=== PATIENT | male | born 1955 | race Caucasian/White ===

== ENCOUNTER 2024-11-20 15:17 | Outpatient (CLI) | payer BC, SELFPAY ==
--- NOTE | 2024-11-20 15:14 | DI.RAD_ITS ---
Exam(s) XR PELVIS AP EXAM: XR PELVIS AP CLINICAL HISTORY: THR Planning. TECHNIQUE: 2D digital imaging was performed.One images were obtained. COMPARISON: RF XR HIP MIN 2V LT from 08/26/2024 RF XR LS SPINE 2-3 VIEWS from 08/26/2024 FINDINGS: BONES: No acute fracture is present. No bony destructive lesion is seen. JOINTS: In the left hip, there is loss of the joint space, subchondral sclerosis and osteophytes. In the right hip, there is marked narrowing of the joint space. Osteophytes are also present on the ac etabulum and the femoral head. SOFT TISSUE: Atherosclerotic calcification is present. IMPRESSION: Marked osteoarthritis of the hips, left greater than right. DATA REPOSITORY: RADIATION DOSE DELIVERED:
== END 2024-11-20 15:18 | disposition home or self-care (01) ==
LOC: DIORS 15:18
PROVIDERS: PCP Family Medicine; Referring Provider Family Medicine; Visit Provider Physician Assistant
DX: M16.12 Unilateral primary osteoarthritis, left hip (principal)
CPT/HCPCS: 72170

== ENCOUNTER 2025-02-12 03:50 | Outpatient (CLI) | payer BC, SELFPAY ==
[2025-02-12 15:00] LABS: HCT 39.4 % (40.0-50.0); HGB 13.3 g/dL (13.5-17.5); MCH 30.3 pg (27.0-33.0); MCHC 33.8 % (32.0-36.0); MCV 90 fL (80-95); MPV 11.5 fL (8.0-11.0); Platelet Count 234 10^3/uL (130-400); RBC 4.39 10^6/uL (4.36-5.78); RDW 13.0 % (11.8-14.1); RDW-SD 42.6 fL; WBC 6.76 10^3/uL (4.4-10.8)
[2025-02-12 17:12] LABS: Anion Gap 12.6 mmol/L (3-11); BUN 16 mg/dL (7-18); CO2 25.4 mmol/L (21.0-32.0); Calcium 9.1 mg/dL (8.5-10.1); Chloride 105 mmol/L (98-107); Estimated GFR 80.97 (mL/min/1.73m2); Glucose 97 mg/dL (74-106); Potassium 3.7 mmol/L (3.5-5.1); Sodium 143 mmol/L (136-145)
== END 2025-02-12 03:51 | disposition home or self-care (01) ==
LOC: LBO 03:50
PROVIDERS: PCP Family Medicine; Visit Provider Student in an Organized Health Care Education/Training Program
DX: M16.12 Unilateral primary osteoarthritis, left hip (principal); Z01.818 Encounter for other preprocedural examination
CPT/HCPCS: 36415; 80048; 85027

== ENCOUNTER 2025-03-30 15:57 | Outpatient (REF) | payer BC, SELFPAY ==
[2025-03-30 13:06] LABS: HCT 40.1 % (40.0-50.0); HGB 13.4 g/dL (13.5-17.5); MCH 30.2 pg (27.0-33.0); MCHC 33.4 % (32.0-36.0); MCV 90 fL (80-95); MPV 11.4 fL (8.0-11.0); Platelet Count 260 10^3/uL (130-400); RBC 4.44 10^6/uL (4.36-5.78); RDW 13.1 % (11.8-14.1); RDW-SD 43.7 fL; WBC 5.89 10^3/uL (4.4-10.8)
[2025-03-30 13:12] LABS: Anion Gap 13.4 mmol/L (3-11); BUN 10 mg/dL (7-18); CO2 21.6 mmol/L (21.0-32.0); Calcium 9.3 mg/dL (8.5-10.1); Chloride 106 mmol/L (98-107); Estimated GFR 95.21 (mL/min/1.73m2); Glucose 102 mg/dL (74-106); Potassium 3.8 mmol/L (3.5-5.1); Sodium 141 mmol/L (136-145)
== END 2025-03-30 15:58 | disposition home or self-care (01) ==
LOC: NCHCN 15:57
PROVIDERS: PCP Family Medicine; Visit Provider Student in an Organized Health Care Education/Training Program
DX: M16.12 Unilateral primary osteoarthritis, left hip (principal); Z01.818 Encounter for other preprocedural examination
CPT/HCPCS: 80048; 85027

== ENCOUNTER 2025-04-08 07:09 | Observation (INO) | payer BC, SELFPAY ==
[2025-04-08] VITALS (35 sets, daily range): BP systolic 85–147; BP diastolic 51–90; PULSE 48–69; RESP 8–21; TEMP 36–36.9; O2SAT 92–100; BMI 25.7
--- NOTE | 2025-04-08 | DI.RAD_ITS ---
Exam(s) XR HIP LT AP LAT ONLY EXAM: XR HIP LT AP LAT ONLY CLINICAL HISTORY: s/p L TIFFANI. TECHNIQUE: 2D digital imaging was performed. Three images were obtained. AP and cross-table lateral views were obtained. COMPARISON: CR XR PELVIS AP from 11/20/2024 XA XR HIP LT IN OR from 04/08/2025 FINDINGS: BONES: The patient is now status post left total hip arthroplasty. No fracture or dislocation. JOINTS: The orthopedic hardware is in good position. No evidence of hardware loosening. SOFT TISSUE: Postsurgical changes are seen in the soft tissues. Atherosclerotic calcification is present. IMPRESSION: Status post left total hip arthroplasty. DATA REPOSITORY: RADIATION DOSE DELIVERED:
[2025-04-08] MEDS: Acetaminophen 500 MG TAB 1000 MG PO (06:29)
[2025-04-08] MEDS: Lactated Ringers 1,000 ML 80 ML IV (06:40)
--- NOTE | 2025-04-08 06:45 | DI.RAD_ITS ---
Exam(s) XR HIP LT IN OR EXAM: XR HIP LT IN OR CLINICAL HISTORY: Osteoarthritis of left hip. TECHNIQUE: 2D digital imaging was performed. COMPARISON: No exams were available for comparison FINDINGS: Intraoperative fluoroscopy was provided during left hip arthroplasty. See procedure report for details. IMPRESSION: Radiation exposure index/cumulative dose:love Mckenzie=2.5052mGy DATA REPOSITORY: RADIATION DOSE DELIVERED:
--- NOTE | 2025-04-08 06:46 | ANES.PREOP_ITS ---
General Info Date of Service Date Performed: 04/08/25 Height: 5 ft 5 in Weight: 70.3 kg Body Mass Index (BMI): 25.7 Surgical Procedure: Operation Date: 04/08/25 07:50 Proposed Procedure Side Surgeon p Hip Total Hip Anterior, ACTIS Left Black Garcia MD Meds Allergies and Home Medications Allergies Allergy/AdvReac Type Severity Reaction Status Date / Time bella Allergy Unknown Unknown Verified 04/08/25 06:33 grass pollen Allergy Unknown Unknown Verified 04/08/25 06:33 Home Medication ?Medication ?Instructions ?Recorded Unknown [No Known Home Meds] 11/20/24 Current Visit Medications: Current Medications Generic Name Dose Route Start Last Admin Trade Name Freq PRN Reason Stop Dose Admin Acetaminophen 1,000 mg 04/08/25 06:00 04/08/25 06:29 Acetaminophen 500 Mg Tab PO 04/08/25 23:59 1,000 mg PREOP IFEANYI Administration Celecoxib 400 mg 04/08/25 06:00 04/08/25 06:29 Celecoxib 200 Mg Cap PO 04/08/25 23:59 400 mg PREOP IFEANYI Administration Ringer's Solution 1,000 mls @ 80 mls/hr 04/08/25 06:00 04/08/25 06:40 IV 04/08/25 23:59 80 mls/hr INFUSION IFEANYI Administration Cefazolin Sodium/Dextrose 2 gm in 50 mls @ 100 mls/hr 04/08/25 06:00 Ancef Duplex IVPB 04/08/25 23:59 PREOP IFEANYI Tranexamic Acid/Sodium Chloride 1,000 mg in 100 mls @ 600 mls/hr 04/08/25 06:00 IVPB 04/08/25 23:59 PREOP IFEANYI IV Miscellaneous Supplies 1 each 04/08/25 06:00 Iv Access IV 04/08/25 23:59 DIRECTED IFEANYI Sodium Chloride 0 ml 04/08/25 06:00 Normal Saline Flush 10 Ml Syr IV 04/08/25 23:59 PRN PRN Sodium Chloride 0 ml 04/08/25 06:00 Normal Saline 10 Ml Vial IJ 04/08/25 23:59 DIRECTED PRN Sterile Water 0 ml 04/08/25 06:00 Water,Injection,Sterile 10 Ml Vial IJ 04/08/25 23:59 DIRECTED PRN PFSH Active Problems Active Problems: Problem Status Onset Code Osteoarthritis of left hip Acute M16.12 Right rib fracture Acute S22.31XA Left lumbar radiculopathy Acute M54.16 Hyperlipidemia Acute E78.5 Tobacco Smoking/Tobacco Use Status: Never Passive smoking exposure: No Alcohol Alcohol Intake: current Alcohol intake frequency: a few times a month Substance Use Substance use: Never Substance use type: does not use Vital Signs and Lab Results Vital Signs Most Recent Vital Signs in EMR: Most Recent Vital Signs Temp Pulse Resp BP Pulse Ox 36.5 C 61 16 147/90 H 99 04/08/25 06:30 04/08/25 06:30 04/08/25 06:30 04/08/25 06:30 04/08/25 06:30 Lab Results Complete Blood Count: WBC, (4.4-10.8) 5.89 10^3/uL 03/30/25, 11:15 RBC, (4.36-5.78) 4.44 10^6/uL 03/30/25, 11:15 Hgb, (13.5-17.5) 13.4 g/dL L 03/30/25, 11:15 Hct, (40.0-50.0) 40.1 % 03/30/25, 11:15 Plt Count, (130-400) 260 10^3/uL 03/30/25, 11:15 Complete Metabolic Panel: Sodium, (136-145) 141 mmol/L 03/30/25, 11:15 Potassium, (3.5-5.1) 3.8 mmol/L 03/30/25, 11:15 Chloride, (98-107) 106 mmol/L 03/30/25, 11:15 Carbon Dioxide, (21.0-32.0) 21.6 mmol/L 03/30/25, 11 :15 BUN, (7-18) 10 mg/dL 03/30/25, 11:15 Creatinine, (0.70-1.30) 0.8 mg/dL 03/30/25, 11:15 Est GFR (CKD-EPI 2020), (mL/min/1.73m2) 95.21 03/30/25, 11:15 Calcium, (8.5-10.1) 9.3 mg/dL 03/30/25, 11:15 Glucose, (74-106) 102 mg/dL 03/30/25, 11:15 Anesthesia Assessment and Plan Anesthesia History Personal History: No History of Anesthesia Complications Family History: No Family History of Anesthesia Complications Exercise Tolerance Exercise Tolerance: Metabolic Equivalents>4 Pertinent Negatives Pertinent Negatives: No Symptoms of GERD, No Major Cardiovascular Symptoms or Complaints, No Major Pulmonary Symptoms or Complaints and No History of CVA/TIA Cardiac & Pulmonary Exam Cardiac Exam: Normal S1/S2 Heart Sounds Pulmonary Exam: Clear Bilateral Breath Sounds Implantable Cardiac Device Does patient have a Pacemaker or an ICD?: No Airway Exam Known Difficult Airway: No Mallampati Class: 2 Mouth Opening: Normal (> 3cm) Thyromental Distance: Greater than 3 cm Neck Range of Motion: Full ROM Neck Circumference: Normal Teeth Condition: Generalized Poor Dentition ASA Classification ASA Score: ASA 2 Emergency Case?: No NPO Status NPO Status: NPO Clears >2 hours, Solids >8 hours Anesthesia Plan Resuscitation Status: Full Code Anesthesia Technique: Spinal Anesthesia Airway Planned: Natural Airway Monitors Used: Standard Monitors
--- NOTE | 2025-04-08 07:11 | PDOC.DSDIS_ITS ---
Date of service: 04/08/25 Discharge Plan Disposition Patient Disposition: Home Condition: Good Discharge Details Reason For Visit: L THR Attending Provider: Black Garcia Primary Care Provider: Reg Champion Home Meds and New Rx's Prescriptions: New acetaminophen 500 mg tablet 1,000 mg PO TID Qty: 90 3RF celecoxib 200 mg capsule 200 mg PO BID Qty: 60 0RF aspirin 81 mg tablet,delayed release (DR/EC) 81 mg PO BID Qty: 60 0RF dexamethasone 4 mg tablet 4 mg PO DAILY Qty: 2 0RF docusate sodium 100 mg capsule 100 mg PO BID PRNQty: 28 0RF pantoprazole 40 mg tablet,delayed release (DR/EC) 40 mg PO DAILY Qty: 14 0RF oxycodone 5 mg tablet 5 mg PO Q4H MDD 6 tabs PRN (Reason: pain) Qty: 12 0RF Discharge Instructions Additional Instructions: Total Hip Discharge Instructions Activity: The most important activity is to walk. You should try to take short walks a few times a day. You have no restrictions on movement or positioning, but do not try to force what you do. You will find some stiffness and weakness with hip flexion (lifting your knee). Do not try to strengthen this too early, continue to practice walking and stairs and this will come. - Outpatient physical therapy can be helpful to help return you to a normal gait and improve your flexibility and strength. This can start around 2 weeks. For some patients, it?s not necessary. Usually this is determined at the time of discharge or at the first post-operative visit. - You should wear the EMIL hose on both legs for 2 weeks. Dressing: Keep the surgical dressing in place for at least one week. After the first week it may be removed and replace with light gauze and tape or nothing. It may get wet after 3 days but avoid soaking the dressing. If it gets wet, just lightly pat dry. It is important to always keep some gauze between skin folds, especially when you are sitting. Spend some time with the wound exposed when you are lying flat as the incision does wrinkle onto itself. Medications: - You should take Tylenol and an anti-inflammatory Celebrex as your primary pain control medications. If the Celebrex is too expensive or not covered, please call the office for another alternative (Advil/Ibuprofen or Naproxen/Aleve). - You have been prescribed a stronger pain medication Oxycodone for breakthrough pain, take as needed as prescribed. - You have also been prescribed a stomach acid reduction agent Pantoprozole to help reduce stomach acid and reflux. - You have also been prescribed Decadron to help with post-operative nausea and pain. You will take this for two days starting tomorrow. - You will be taking Aspirin 81mg twice a day for DVT prevention unless instructed otherwise. - If you have constipation you should take Colace or Miralax (both [id number]). It takes most people 3-4 days to have a bowel movement. Follow-up: 2 weeks If you have any acute concerns or questions, please do not hesitate to contact the office at [phone]. You may contact Dr. Garcia with any questions after hours through the hospital at [phone] or on his cell phone at [phone]. Stand Alone Forms: Anesthesia Discharge Inst., Johnny Arroyo ([facility]) Referrals: Black Garcia MD [ [facility] STAFF PHYSICIAN, Orthopaedic Surgical] - 04/23/25 1:45 pm Equipment/Supplies: Walker Activity:: Activity as Tolerated Shower/Bathe:: 72 hours Diet:: As Tolerated Discharge Orders Discharge Orders: Discharge Order (Routine); Ordered 04/08/25 Ordered By: Vasiliy Trotter DS: Diagnosis Discharge Diagnosis (1) Osteoarthritis of left hip: Status: Acute
--- NOTE | 2025-04-08 07:41 | W.PM.OP ---
Operative Note Operative Note PRE-OP DIAGNOSIS: Left Hip Osteoarthritis POST-OP DIAGNOSIS: same PROCEDURE: Left Anterior Total Hip Arthroplasty with Intraoperative Navigation SURGEON: Black Garcia RESERVATIONS SALES SUPERVISOR: Vasiliy Trotter ANESTHESIA TYPE: Spinal Refer to Anesthesia Record ESTIMATED BLOOD LOSS: 100 PATHOLOGY: none sent TOURNIQUET TIME: 0 COMPLICATIONS: None Patient was transported to: PACU Patient's condition: stable Implants: 1. Depuy [place] Acetabular Component, 54mm 2. Depuy Acetabular Liner, [id number] 3. Depuy Actis High Offset Collared Femoral Stem, Size 4 4. Depuy Altrx Ceramic Femoral Head, Size 36+1.5mm Indications: I have seen Hodan in clinic for symptoms of hip arthritis, confirmed with radiographic findings. He has exhausted nonoperative methods and was having significant limitations in daily function and desired better function and less pain. I discussed the technical details of a hip replacement. I explained the risks of the procedure to include, but not limited to, bleeding, infection, pain, stiffness, fracture, damage to nerves and vessels, damage to muscles and tendons, loosening, instability, leg length inequality, need for repeat procedure, blood clot and cardiopulmonary demise. Despite these risks, Hodan elected to proceed. Findings: There was significant signs of arthritis throughout the hip with large osteophytes throughout. Procedure Description: Hodan was greeted in the preoperative holding area where the correct side was identified and marked. The consent was reviewed with the patient and signed. The history and physical was updated. All questions were answered. He was taken back to the operating room. A spinal anesthestic was then administered. The feet were wrapped with cast padding and Coban and then placed into the boot liners and then into the boots. Care was taken to protect the skin and make sure the heels were fully down and the boots were stable. The patient was then positioned onto the HANA table. Both legs were held in a neutral position. SCDs were applied. The patient was then slid down onto a peroneal post. Prophylactic antibiotics in the form of Cefazolin were administered. 1g of Tranxemic Acid was given intravenously within 30 minutes of incision. The left leg was then prepped with Chloraprep and draped in a standard fashion. A second prep with Chloraprep was performed prior to placement of a shower-curtain type drape with Iodine impregnated skin protection. A timeout to confirm correct identity, side and site, procedure, allergies, anesthesia, and medical concerns was performed. An obliquely oriented incision was made starting lateral to the ASIS and running distal over the Tensor Fascia Chantale (TFL) muscle belly toward the fibular head, approximately 10cm. The skin and soft tissue was dissected sharply, through Beata?s fascia, and to the fascia of the TFL. With the fascia and superior border of the IT band identified, the fascia was incised with a new knife just above any perforators from the IT band. The TFL muscle belly was bluntly dissected away from the fascia and moved laterally. The fat between TFL and rectus was identified to ensure the dissection was not within the TFL. Blunt dissection created space between abductors and the capsule and retractor was placed over the lateral femoral neck. The fibers of the rectus femoris tendon were identified and these were freed from the anterior capsule. A second cobra retractor was placed around the medial femoral neck. The TFL was further retracted laterally to show the deep fascia. Careful dissection through this layer identified three main crossing vessels of the lateral femoral circumflex. These were cauterized in multiple locations and then cut without any noticeable bleeding. The TFL was further released bluntly from the deep fascia to expose anterior hip capsule and fat The soft tissue orthopaedic retractor was then placed beneath the TFL and against sartorius and medial soft tissues to protect and retract the soft tissues. A T-capsulotomy was then performed starting at the superior lateral acetabulum and moving distally to the intertrochanteric ridge. These capsular flaps were tagged with a No. 1 Vicryl and elevated from within. The capsular flaps were released to the shoulder of the lateral neck and to the lesser trochanter to give excellent visualization of the proximal femur. A neck osteotomy was performed using an oscillating saw based on preoperative templates. This cut started in the shoulder and of the lateral neck and exited medially. The saw was at all times directed medially to avoid injury to the greater trochanter. Gross traction was applied to the leg and the osteotomy opened. The femoral head was removed with a corkscrew, making sure to protect the TFL on its exit. Traction was released after head removal. This was measured on the back table to determine the starting reamer size. Portions of the rectus obscuring visualization were minimally elevated off the superior acetabulum. An anterior retractor was placed over the anterior wall between capsule and labrum and attached to the Gripper retraction system. The femur was rotated to 90 degrees and medial capsule was fully released until the lesser trochanter was palpable and visible; the femur was returned to 30 degrees. A posterior retractor was placed similarly between capsule and labrum. This provided excellent visualization. The contents of the cotyloid fossa were removed with electrocautery and the labrum was removed with a knife. There was a notable floor osteophyte. There was significant chondromalacia of the superior acetabulum. Acetabular reaming began with a 49mm reamer. This first reaming was directed anterior to posterior and medial to get down to the true floor. This was inspected and reamed until the true floor was reached. The anterior retractor was then released and entry and exit was provided by traction on the capsular flaps. I then reamed sequentially up to a 54mm reamer where good fit was obtained. The larger reamers were oriented based on anatomical reference of the anterior and lateral davila to ensure proper abduction and anteversion. Positioning and size was confirmed with the fluoroscopy. A 54mm Depuy [place] acetabular component was selected. The acetabulum was reamed around the periphery with the selected acetabular size to prevent a rim fit. The deep tissues were irrigated. The acetabular component was then impacted in a position of about 40-45 degrees of abduction and 15-20 degrees of anteversion, using the patient?s anatomy as the ultimate landmark. Fluoroscopy was used to confirm this. There was excellent car wash supervisor of the acetabular component and the inserting handle was removed. The acetabular liner, Depuy [id number] polyethylene liner, was inserted and lined up with the tines of the acetabular component. There was no soft tissue interposition. The liner was then impacted into position and confirmed to be well-seated. A portion of the manuel-articular cocktail was then injected around the acetabulum into the capsule and periosteum. This cocktail consisted of 123mg of Ropivacaine, 0.25mg of Epinephrine, 0.04mg of Clonidine, and 15mg of Ketorolac, diluted to 50cc. The leg was rotated to 120 degrees. Any remaining medial capsule was released until the lesser trochanter was easily palpable. A retractor was placed medially. The lateral capsule was further released into the shoulder to allow access to the greater trochanter. A Bennett retractor was placed over the greater trochanter which allowed the trochanter to flip in front of the capsule for excellent exposure. The leg was brought down into maximal extension and 20 degrees of adduction while ensuring there was no impingement on the acetabulum. Any remnant capsule within the trochanter was released. Piriformis and obturator externis were identified and protected. There was excellent access to the proximal femur. The lateral neck remnant was removed with a rongeur. A blunt canal probe was used to identify the canal and trajectory for later broaching. A box osteotome initiated the broach course. A small curved rasp and a curved curette were used to work laterally. Broaching then began with a starter Actis broach. This was inserted manually around the trochanter and into the canal before mallet blows. The broach was seated to a few millimeters below the cut level based on the neck cut and the preoperative template. Sequential broaching was continued with the [employer] pneumatic broaching device until a tight fit was obtained with good rotational control of the femur. A trial standard neck was inserted along with a +5 trial head. The leg was brought out of extension and adduction and then reduced with traction and internal rotation. The leg was stable anteriorly in a position of 30 degrees of extension and 90 degrees of external rotation. Fluoroscopy was used to ensure there was no fracture and the stem was seated well. Leg lengths were checked with an AP pelvis and pelvic reference points. [employer] navigation system was used to confirm appropriate positioning and leg length and offset. This is slightly overcorrected the leg length but undercorrected offset. However, this to be improved by going to a high offset neck with a +1.5 mm head. Once content with the desired offset and leg lengths, the leg was brought back into extension, external rotation and adduction. The periosteum and surrounding tissue was injected with remaining portion of the manuel-articular cocktail. The proximal femur was irrigated as well as the deep tissues. The Depuy Actis High Offset collared stem, size 4, was then manually inserted into the proximal femur making sure to control rotation. It was then malleted into position with light blows, giving breaks to allow bone expansion and decrease risk of fracture. The selected Depuy Altrx Ceramic Head, size 36+1.5mm, was then placed onto the clean and dry trunnion and secured with impaction onto the tapered fit. The leg was brought back out of extension and adduction and reduced with traction and internal rotation. Stability was confirmed with no shuck at 90 degrees of external rotation and 30 degrees of extension. No impingement through range of motion arc. Final x-ray images were obtained with fluoroscopy to confirm adequate positioning and no intraoperative fracture. The deep tissues were thoroughly irrigated with Surgiphor, betadine solution. This was allowed to sit in the wound for 3 minutes before being thoroughly irrigated out with normal saline. The capsule was then reapproximated with the previously placed sutures as well as #1 Vicryl. The TFL fascia was finally closed with a No. 2 Stratafix, barbed suture. Deep tissues were then reapproximated with 0 Vicryl and a running 2-0 Vicryl. The skin was closed with a running 4-0 Monocryl in a subcuticular fashion. This was reinforced with skin glue. A Mepilex silver dressing was applied. At the end of the case, all counts were correct. Hodan was transferred to the hospital bed without difficulty and suffering no apparent complication. He has a good prognosis. Physical therapy will start today and without restrictions, weight-bearing as tolerated. Aspirin 81mg BID will be used for DVT prophylaxis. Date of Procedure: 04/08/25
[2025-04-08] MEDS: ceFAZolin 2 GM/50 ML BAG IVPB (07:50)
[2025-04-08] MEDS: TRANEXAMIC ACID/SOD. CHL. 1,000 MG/100 ML BAG 600 MG IVPB (07:54)
[2025-04-08] MEDS: fentaNYL 100 MCG/2 ML VIAL IVP (09:27)
[2025-04-08] MEDS: HYDROmorphone 2 MG/ML SYR IVP (09:34)
[2025-04-08] MEDS: oxyCODONE 5 MG TAB PO (10:07)
[2025-04-08] MEDS: Tranexamic Acid 650 MG TAB 1300 MG PO (10:07)
--- NOTE | 2025-04-08 10:10 | W.ANESPOSTOP ---
Postoperative Evaluation Date, Time and Location Date Performed: 04/08/25 Time Performed: 10:10 Patient Location: Day Surgery Unit Vital Signs Most Recent Imported Vital Signs: Most Recent Vital Signs Temp Pulse Resp BP Pulse Ox 36.3 C L 48 L 8 L 122/62 93 04/08/25 09:48 04/08/25 09:46 04/08/25 09:46 04/08/25 09:45 04/08/25 09:46 Pain Score Most Recent Pain Score: Most Recent Pain Score Pain Level 3 04/08/25 09:48 Assessment Mental Status: Awake (Alert & Oriented to Patient Baseline) Airway and Respiratory Function: Patent airway with normal (patient baseline) respiratory exam Cardiovascular Function: Hemodynamically Stable Hydration Status: Adequately Hydrated Nausea & Vomiting: No Nausea or Vomiting Pain: Pain is tolerable per patient Peripheral Nerve Block: Patient did not receive a nerve block
[2025-04-08] MEDS: Ondansetron 4 MG/2 ML VIAL IVP (11:50)
[2025-04-08] MEDS: Normal Saline Flush 10 ML SYR IV ×2 (11:50→12:49)
--- NOTE | 2025-04-08 11:50 | PT.INIE ---
PT Notes Visit Reasons: L THR Physical Therapy Day Surgery Initial Evaluation Date: 04/08/2025 Referring Doctor: TREMAINE Lyons/Dr. Garcia PT Orders: PT CONSULT: PT evaluation and treat status post Ortho surgery Precautions: WBAT left LE Patient Profile/Admitting Diagnosis: Patient is 70-year-old male presenting status post elective left TIFFANI by Dr. Garcia on 04/08/2025. Postop complicated by nausea and vomiting. PMHX: Osteoarthritis of left hip (Acute) Right rib fracture (Acute) Left lumbar radiculopathy (Acute) Hyperlipidemia (Acute) Social History/Home Situation: Patient resides 1 level home with 3 steps to enter with no rail. Patient independent ambulation, ADLs, patient has shower stall. Equipment Owned/DME: No devices Subjective: Patient initially reported he wants to start to walk. Objective: [] General Observation: Thin male semireclined on stretcher with ice to left hip Mental Status: Alert and oriented to person situation. Patient agreeable to participate cooperative and able to follow instructions Pain: 7/10 despite pain medication prior to session Vital signs initially 106/59 heart rate 51, after vomiting 97/58 heart rate 50, 3 minutes later 100/54 heart rate 50 ROM: [] BUE: WFL Right Lower Extremity: WFL Left Lower Extremity: Hip Flexion 95 degrees, abduction 10 degrees, knee and ankle within functional limits Strength: [] BUE: 5/5 Right Lower Extremity: 5/5 Left Lower Extremity: Hip flexion: 2/5; hip abduction: 2 -/5; hip extension: 3 -/5; knee extension: 3 -/5; knee flexion: 2+/5 ankle DF: 3/5 ; ankle PF: 3/5 Sensation: Intact Bed Mobility/Transfers: [] Supine to sit min assist for lower extremity Sit to stand CGA with cues for hand placement Stand to sit CGA with cues for hand placement Bed to chair CGA with FWW Gait: Ambulated 10 feet with FWW min assist positive antalgic gait left lower extremity. Patient demonstrating forward trunk flexion with weightbearing on left lower extremity and increased weightbearing through bilateral upper extremities. At 10 feet patient reported he was feeling like he was going to vomit patient assisted to chair. Patient vomited large amount of liquid RN present. Balance: [] Static Sitting: Good Dynamic Sitting: Fair Static Standing: Fair with upper extremity support Dynamic Standing: Poor plus with upper extremity support Special Tests: [] Mobility Limitations Standardized Measure [] [facility] AM-PAC 6 clicks Basic Mobility Inpatient Short Form: [] Raw Score: 15 CMS Score: 57.70% deficit Informed Consent/Education: Patient instructed in purpose of PT consult. Treatment: 20061 packet containing TIFFANI exercise protocol has been given to patient. Education and training on initial set of exercises that can be done at home have been completed with patient. Transfers sit to/from stand from chair x 5 with contact-guard/min assist resulting in episode of emesis Step turn transfers with FWW x 2 with min assist of 1 Sit to supine with min assist of 1 for lower extremities Assessment: Patient initially approached for assessment able to sit at edge of bed stand and perform step turn transfer to chair with FWW patient developed nausea with resulting emesis. Patient allowed to rest x 2.5 hours prior to reattempt at functional assessment. On second attempt patient able to perform sit to stands from chair to walker without reports of nausea then attempted to take 2 steps patient developed nausea again with resulting emesis large amount. Patient assisted back to bed status discussed with Dr. Garcia present in room patient to be admitted for observation overnight with reattempt of PT in the a.m. Patient demonstrates increased pain resulting in episodes of emesis x 3 with mobility and at rest. Patient unable to ambulate greater than 3 steps requiring min assist due to severity of pain despite pain medication. Patient presents with clinical signs and symptoms consistent with current/admitting diagnoses that have resulted to mobility limitations, gait instability, generalized weakness, and impairment of motor control as demonstrated by the following impairment level findings: 1. Decreased strength to left hip major muscle groups 2. Impaired standing balance 3. Limitation of joint range of motion in left hip 4. Pain left hip 5. Nausea and vomiting 6. Impaired functional activity tolerance Impairments are contributing to the following functional limitations: 1. Inability to safely ambulate without assistive device 2. Increase completion time for mobility ADL performance 3. Increased fall risk 4. Difficulty performing transfers 5. Decline in bed mobility skills 6. Inability to perform stairs Patient is assessed as a moderate complexity based on the following: History: [70-year-old male with impairment level findings, functional limitations, and past medical history as indicated above Examination: Demonstrable impairment in strength, balance, and mobility level with underlying impairments and functional limitations as documented above Presentation: Evolving Decision Making: Moderate Goals: PT evaluation and 1-2 treatment sessions only for functional mobility training using recommended AD and for HEP instruction. 1. Supervised bed mobility 2. Supervised transfers with FWW 3. Supervised ambulation with FWW greater than 50 feet 4. Contact-guard assist 3 stairs to safely enter and exit home 5. Supervised home exercise program with written instructions per TIFFANI protocol Plan of Care/Treatment Plan: PT evaluation and 1-2 treatment session only for functional mobility training using recommended AD and for HEP instruction. DISCHARGE RECOMMENDATIONS: Home with HEP and FWW TREATMENT CODE/TIME: 61970,[id number]/ [id number], Thank you for the opportunity to participate in the care of this patient. Ana Bolaños, PT [facility]
[2025-04-08] MEDS: Droperidol 5 MG/2 ML VIAL 0.625 MG IVP (12:48)
[2025-04-08] MEDS: ceFAZolin 1 GM/50 ML BAG IVPB (16:51)
--- NOTE | 2025-04-08 18:11 | W.PC.ACHO ---
Registration Status: ADM JORGE Primary Language: Preferred Language: Most Recent Vital Signs Temperature 36 C L 04/08/25 15:04 Temperature Source Temporal Artery Scan 04/08/25 15:04 Pulse 53 L 04/08/25 15:04 Pulse Rhythm Regular 04/08/25 15:00 Pulse 49 L 04/08/25 09:46 Respiratory Rate 20 04/08/25 15:04 Respiratory Effort Normal 04/08/25 15:00 Respiratory Depth Normal 04/08/25 15:00 Respiratory Pattern Normal 04/08/25 15:00 Blood Pressure 133/60 04/08/25 15:04 Blood Pressure Mean 84 04/08/25 15:04 Pulse Oximetry 97 04/08/25 15:04 Respiratory End-tidal CO2 35 04/08/25 09:46 Oxygen Delivery Method Room Air 04/08/25 15:04 Oxygen Flow Rate 0 04/08/25 15:04 Pain Level 4 04/08/25 15:04 Allergies bella Allergy (Unknown, Verified 04/08/25 06:33) Unknown grass pollen Allergy (Unknown, Verified 04/08/25 06:33) Unknown Active Medications Generic Name Dose Route Start Last Admin Trade Name Freq PRN Reason Stop Dose Admin Acetaminophen 1,000 mg 04/08/25 06:00 04/08/25 06:29 Acetaminophen 500 Mg Tab PO 04/08/25 23:59 1,000 mg PREOP IFEANYI Administration Celecoxib 400 mg 04/08/25 06:00 04/08/25 06:29 Celecoxib 200 Mg Cap PO 04/08/25 23:59 400 mg PREOP IFEANYI Administration Droperidol 0.625 mg 04/08/25 09:23 04/08/25 12:48 Droperidol 5 Mg/2 Ml Vial IVP 05/08/25 09:22 0.625 mg DIRECTED PRN Administration Fentanyl 0 mcg 04/08/25 09:23 04/08/25 09:27 Fentanyl 100 Mcg/2 Ml Vial IVP 05/08/25 09:22 50 mcg DIRECTED PRN Administration Hydromorphone HCl 0 mg 04/08/25 09:23 04/08/25 09:34 Hydromorphone 2 Mg/Ml Syr IVP 05/08/25 09:22 0.4 mg DIRECTED PRN Administration Ringer's Solution 1,000 mls @ 80 mls/hr 04/08/25 06:00 04/08/25 10:35 IV 04/08/25 23:59 Infused INFUSION IFEANYI Infusion Cefazolin Sodium/Dextrose 2 gm in 50 mls @ 100 mls/hr 04/08/25 06:00 04/08/25 08:20 Ancef Duplex IVPB 04/08/25 23:59 Infused PREOP IFEANYI Infusion Tranexamic Acid/Sodium Chloride 1,000 mg in 100 mls @ 600 mls/hr 04/08/25 06:00 04/08/25 08:04 IVPB 04/08/25 23:59 Infused PREOP IFEANYI Infusion Cefazolin Sodium/Dextrose 1 gm in 50 mls @ 100 mls/hr 04/08/25 16:00 04/08/25 17:21 Ancef Duplex IVPB 04/09/25 08:29 Infused Q8H IFEANYI Infusion Ondansetron HCl 4 mg 04/08/25 07:09 04/08/25 11:50 Ondansetron 4 Mg/2 Ml Vial IVP 05/08/25 07:08 4 mg Q6H PRN PRN Administration Nausea Oxycodone HCl 0 mg 04/08/25 07:09 04/08/25 10:07 Oxycodone 5 Mg Tab PO 05/08/25 07:08 5 mg Q3H PRN PRN Administration Pain Sodium Chloride 0 ml 04/08/25 06:00 04/08/25 12:49 Normal Saline Flush 10 Ml Syr IV 04/08/25 23:59 10 ml PRN PRN Administration IV IV Catheter Type [Left Forearm Peripheral IV ] IV Catheter Gauge [Left 20 Forearm] Diet Orders Category Date Time Status Regular/Normal [DIET] Nutrition 04/08/25 Dinner Active Regular/Normal [DIET] Nutrition 04/08/25 Lunch Active Intake and Output - 24 Hour Total 02/25/25 11:26 thru 04/08/25 17:34 Intake Total 1550 Output Total 200 Balance 1350 Weight 70.3 kg Intake: IV 1000 Oral 550 Output: Urine 200 Other: Urine Color Yellow Urine Appearance Clear Urine Odor Strong Emesis Description None Falls Risk Assessment History of Falls No History 04/08/25 15:00 Ambulatory Aids Uses ambulatory device 04/08/25 15:00 Tubes/Lines None 04/08/25 15:00 Gait Evaluation W/no contributing factors 04/08/25 15:00 Cognition No cognitive impairment 04/08/25 15:00 Fall Total Score 25 04/08/25 15:00 Level of Risk Moderate Risk 04/08/25 15:00 v v v v v v v v v Sending and/or Receiving Nurses: Please use comment section below to note any information pertinent to the patient hand-off not included above. Information / Comments: Report received from: Chayito @[facility] at bedside.
[2025-04-08] MEDS: Aspirin E.C. 81 MG TABEC PO (19:49)
[2025-04-08] MEDS: Celecoxib 200 MG CAP PO (21:19)
[2025-04-09] MEDS: ceFAZolin 1 GM/50 ML BAG IVPB ×2 (00:19→07:59)
[2025-04-09 03:06] VITALS: BP 117/64; PULSE 65; RESP 14; TEMP 36.4; O2SAT 95
[2025-04-09 07:09] VITALS: BP 118/67; PULSE 61; RESP 16; TEMP 36.1; O2SAT 95
[2025-04-09] MEDS: Acetaminophen 500 MG TAB 1000 MG PO (07:27)
[2025-04-09] MEDS: oxyCODONE 5 MG TAB PO (07:30)
[2025-04-09] MEDS: Celecoxib 200 MG CAP PO (07:59)
[2025-04-09] MEDS: Dexamethasone 4 MG TAB PO (07:59)
[2025-04-09] MEDS: Aspirin E.C. 81 MG TABEC PO (07:59)
[2025-04-09] MEDS: Normal Saline Flush 10 ML SYR (08:00)
--- NOTE | 2025-04-09 08:19 | INITIAL_ITS ---
Date of service: 04/09/25 Time of Service: 08:19 Care Management Initial Assmt Initial Assessment Reason for Hospitalization: left total hip replacement Functional Status/Living Situation Patient Presentation: Hodan presented for a planned let total hip yesterday morning secondary to arthritis. Today he was sitting up in the chair, legs elevated, when CM met with him. He was very pleasant . He stated that he is feeling good, he has been up walking, and is ready to go home. Hodan stated that he has a woman who helps him at home, and he should be all set. Hodan has BC/BS out of state insurance. He stated that he never applied for Medicare. Burke was given the COA brochure after confirming appointments for enrollment are still available, along with info for open enrollment clinics on 04/29 and 04/30. Town of Residence: [place] Resides with: Other Significant Other/Family: Local (brothers Dale and eSrgo. Good friend, Bandar.) Employment Status: Employed (works as a semi- auto transport driver) Instrumental Activities of Daily Living (ADLs): Independent Medications Medication Management: No Issues/Barriers identified Physical Functioning/Mobility Assistive Device: will be using a FWW while rehabilitating Advance Directives Advance Directives: Do you have an Advance Directive: AD On File at [facility]: N 10/27/24, 14:30 Date Asked 04/08/25 Today, 08:06 AD Date Reviewed COLST On File at [facility] COLST Date Scanned Code Status Resuscitation Status Full Code Insurance Coverage/Financial Issues Insurance: BC/BS Out of State -? Care Team Visit Care Team Role Provider Type Reg Champion Primary Care Provider [facility] STAFF PHYSICIAN InPatient [facility] Other Providers OTHER Black Garcia MD Admit Provider [facility] STAFF PHYSICIAN Attending Provider Discharge Potential Discharge Needs: PT Evaluation, PCP F/U Appt and Surgical F/U Appt Anticipated Barriers to Discharge: None Identified Patient/Family Education Needs: Review discharge instructions, discuss Ask Me Three Transportation: Private vehicle Plan: Hodan will discharge home when medically ready with no new home care services. He will f/u with his PCP and the orthopedic surgeon and continue per his plan of care. He will transport home with a friend. CM will continue to follow. Social Determinants of Health Screening Social Determinants of health last assessed in clinic: 04/09/25 Will the Patient Participate in the Screening?: Yes Do you worry about having a steady place to live?: no Problems where you live: no known problems In the past 12 months, have you had to go without electric, gas, oil or water in your home?: no 1. Within the past 12 months, we worried whether our food would run out before we got money to buy more.: Don't know/refused 2. Within the past 12 months, the food we bought just didn't last and we didn't have money to get more.: Don't know/refused Has lack of transportation kept you from medical appointments or from doing things needed for daily living?: no Has anyone in your life made you feel unsafe or unsupported?: no How hard is it for you to pay for the very basics like food, housing, medical care, and heating? Would you say it is:: Not hard at all Do you want help finding or keeping work or a job?: I do not need or want help If for any reason you need help with day-to-day activities such as bathing, preparing meals, shopping, managing finances, etc., do you get the help you need?: I don?t need any help How often do you feel lonely or isolated from those around you?: Never Do you speak a language other than Persian at home?: No PFSH All Active Problems Osteoarthritis of left hip (Acute) Right rib fracture (Acute) Left lumbar radiculopathy (Acute) Hyperlipidemia (Acute) Social History Smoking/Tobacco Use Status: Never Smoking risk assessment performed?: Yes Alcohol Intake: current Alcohol Intake frequency: a few times a month Drug use: Never Substance use type: does not use Housing: house Do you feel safe at home: Yes Do you feel safe in your relationship?: Yes
--- NOTE | 2025-04-09 09:46 | DSE_ITS ---
Date of service: 04/09/25 Time of Service: 09:30 DS: Diagnosis Discharge Diagnosis (1) Osteoarthritis of left hip: Status: Acute Discharge Plan Disposition Patient Disposition: Home Condition: Good Discharge Details Reason For Visit: OA L Hip Admit Date/Time: 04/08/25 07:09 Admit Provider: Black Garcia Attending Provider: Black Garcia Primary Care Provider: Reg Champion Hospital Course Hospital Course: Patient was admitted to the medical/surgical floor following the procedure. The surgery was tolerated well without any notable medical, surgical, or anesthetic complications. Mobilization began postoperatively. He was voiding spontaneously. Vitals were stable. Physical therapy worked with the patient and was cleared for discharge home. No acute medical issues. Pain was controlled on oral regimen. Home Meds and New Rx's Prescriptions: New acetaminophen 500 mg tablet 1,000 mg PO TID Qty: 90 3RF celecoxib 200 mg capsule 200 mg PO BID Qty: 60 0RF aspirin 81 mg tablet,delayed release (DR/EC) 81 mg PO BID Qty: 60 0RF dexamethasone 4 mg tablet 4 mg PO DAILY Qty: 2 0RF docusate sodium 100 mg capsule 100 mg PO BID PRNQty: 28 0RF pantoprazole 40 mg tablet,delayed release (DR/EC) 40 mg PO DAILY Qty: 14 0RF oxycodone 5 mg tablet 5 mg PO Q4H MDD 6 tabs PRN (Reason: pain) Qty: 12 0RF Discharge Instructions Additional Instructions: Total Hip Discharge Instructions Activity: The most important activity is to walk. You should try to take short walks a few times a day. You have no restrictions on movement or positioning, but do not try to force what you do. You will find some stiffness and weakness with hip flexion (lifting your knee). Do not try to strengthen this too early, continue to practice walking and stairs and this will come. - Outpatient physical therapy can be helpful to help return you to a normal gait and improve your flexibility and strength. This can start around 2 weeks. For some patients, it?s not necessary. Usually this is determined at the time of discharge or at the first post-operative visit. - You should wear the EMIL hose on both legs for 2 weeks. Dressing: Keep the surgical dressing in place for at least one week. After the first week it may be removed and replace with light gauze and tape or nothing. It may get wet after 3 days but avoid soaking the dressing. If it gets wet, just lightly pat dry. It is important to always keep some gauze between skin folds, especially when you are sitting. Spend some time with the wound exposed when you are lying flat as the incision does wrinkle onto itself. Medications: - You should take Tylenol and an anti-inflammatory Celebrex as your primary pain control medications. If the Celebrex is too expensive or not covered, please call the office for another alternative (Advil/Ibuprofen or Naproxen/Aleve). - You have been prescribed a stronger pain medication Oxycodone for breakthrough pain, take as needed as prescribed. - You have also been prescribed a stomach acid reduction agent Pantoprozole to help reduce stomach acid and reflux. - You have also been prescribed Decadron to help with post-operative nausea and pain. You will take this for two days starting tomorrow. - You will be taking Aspirin 81mg twice a day for DVT prevention unless instructed otherwise. - If you have constipation you should take Colace or Miralax (both [id number]). It takes most people 3-4 days to have a bowel movement. Follow-up: 2 weeks If you have any acute concerns or questions, please do not hesitate to contact the office at [phone]. You may contact Dr. Garcia with any questions after hours through the hospital at [phone] or on his cell phone at [phone]. Stand Alone Forms: Anesthesia Discharge Inst., Johnny Arroyo (U) Referrals: Black Garcia MD [ [facility] STAFF PHYSICIAN, Orthopaedic Surgical] - 04/23/25 1:45 pm Activity:: Activity as Tolerated Equipment/Supplies:: Walker Diet:: As Tolerated Discharge Orders Discharge Orders: Discharge Order (Routine); Ordered 04/09/25 Ordered By: Black Garcia DS: Summary Time Spent with Patient providing and/or coordinating discharge services: Less than 30 minutes Status at Discharge Functional status at discharge: uses cane/walker Overall status at discharge: patient is back to baseline Mental Status: mental status grossly normal Speech and Movement: speech and movement normal Mood: congruent mood Affect: normal affect Exam Narrative Exam Narrative: Sitting up in the chair. NAD. AAOx3. Left hip dressing c/d/i Very tight for hip external rotation No pain with passive IR/ER/Flexion +ADF/APF/EHL/FHL SILT DP/SP/Tib Psych Mental Status: mental status grossly normal Speech and Movement: speech and movement normal Mood: congruent mood Affect: normal affect DS: Data Vitals/I&O Vitals and I&O: Vital Signs Temperature 36.1 C L 04/09/25 07:09 Temperature Source Temporal Artery Scan 04/09/25 07:09 Pulse 61 04/09/25 07:09 Pulse Rhythm Regular 04/08/25 15:00 Pulse 49 L 04/08/25 09:46 Respiratory Rate 16 04/09/25 07:09 Respiratory Effort Normal 04/08/25 15:00 Respiratory Depth Normal 04/08/25 15:00 Respiratory Pattern Normal 04/08/25 15:00 Blood Pressure 118/67 04/09/25 07:09 Blood Pressure Mean 84 04/09/25 07:09 Pulse Oximetry 95 04/09/25 07:09 Respiratory End-tidal CO2 35 04/08/25 09:46 Oxygen Delivery Method Room Air 04/09/25 07:09 Oxygen Flow Rate 0 04/09/25 07:09 Pain Level 8 04/09/25 07:30 Intake & Output 04/08/25 04/08/25 04/09/25 11:59 23:59 11:59 Intake Total 1390 / 1550 160 / 1550 300 / 300 Output Total 200 / 200 1050 / 1050 Balance 1390 / 1350 -40 / 1350 -750 / -750 Weight 70.3 kg Intake: IV 950 / 1000 50 / 1000 50 / 50 Oral 440 / 550 110 / 550 250 / 250 Output: Urine 200 / 200 1050 / 1050 Other: Urine Color Yellow Yellow Urine Appearance Clear Clear Urine Odor Strong Normal Comment pt voids in urinal. Emesis Description None PFSH All Active Problems Osteoarthritis of left hip (Acute) Right rib fracture (Acute) Left lumbar radiculopathy (Acute) Hyperlipidemia (Acute) Social History Smoking/Tobacco Use Status: Never Smoking risk assessment performed?: Yes Alcohol Intake: current Alcohol Intake frequency: a few times a month Drug use: Never Substance use type: does not use Housing: house Do you feel safe at home: Yes Do you feel safe in your relationship?: Yes Time Spent with Patient Time Spent with Patient: <45 minutes Time was spent: preparing to see the patient(eg.review tests), obtaining and/or reviewing separately otained hiistory and referring, communicating with other health manager intensive care unit
--- NOTE | 2025-04-09 10:22 | PT.INTREAT ---
PT Notes Visit Reasons: OA L Hip Inpatient Physical Therapy Treatment Note [facility] Date: 04/09/2025 PRECAUTIONS:WBAT LLE , TEDs x 2 weeks, Standard SUBJECTIVE: Pt reports he is feeling much better than yesterday. He states he still has pain but it is not as bad. He states he has had no further vomiting or nausea. OBJECTIVE: Pt initially presented supine in bed with HOB at 30 degrees, ice pack to left hip.? PAIN: left hip ( pointing to incision area) 09/08 after meds VITALS: ?118/67, 61bpm, 95% RA Therapeutic Activities (14820x[]): Direct one-on-one instruction in dynamic activities to improve functional performance. ? BED MOBILITY/TRANSFERS? Rolling L/R: supervision Supine-sit: supervision x 3 trials ? ? (first/2nd session)? Sit-supine: Supervision x 3 trials ? ?(first/2nd session) ? Sit to /from stand: Supervision from bed to chair and toilet (first session?) ?supervision from various chairs height of 17 to 19 inches x 6 trials(second session) ? Bed-toilet: Contact-guard assist with FWW (first session) ? Toilet?chair: SBA with FWW (first session) Provided skilled cues and instruction on performance and technique throughout. ( Second session) gait Training (09323s[]): Direct one-on-one instruction and skilled instruction in: [] employing an assistive device [] modified weight-bearing status [X] movement sequencing [X] turning and movement with proper form [] Provided verbal cues for equipment management and technique [X] Provided instruction in gait pattern [X] Patient education regarding pacing and breathing techniques to maximize activity tolerance? GAIT? Assistive Device: FWW? Weight bearing: WBAT left LE Assist: SBA? ?cues for posture and FWW management ? Distance: 75 feet x 1, 225 feet x 1, 25 feet x 1 ? Deviation: Reduced hip flexion to advance left lower extremity patient utilizing vaulting motion for advancement. Decreased left knee flexion during swing phase early heel off left ? STAIRS: 3 4 steps? and 2 6 steps with rails SBA with continuous cues for sequencing step to pattern 3 4 steps? and 2 6 steps with 1 rail to simulate wall at home CGA with continuous cues for sequencing step to pattern ? Therapeutic Exercises ([id number][]): Direct one-on-one instruction in therapeutic exercises to develop strength, endurance, range of motion and flexibility. ? Exercises ?Supine: Heel slides AAROM x 10 reps, abduction x 10 reps, glutes sets 10 reps, quad sets x 10 reps ? Seated marching 2 sets 5 reps, long arc quad 2 sets 5 reps? Provided skilled instruction in proper exercise performance ASSESSMENT: Patient with significant improvement in functional ability after performing supine TherEX. Patient with increased tolerance to ambulation with noted antalgic initial steps approximately 2-3 with FWW. Patient able to perform stairs with simulated use of railing as a wall to a send 3 steps in preparation for discharge to home. Patient demonstrates decreased tolerance to quad lengthening during stand to sit resulting in him bringing his left lower extremity forward prior to sitting maintaining knee in extension. When seated he is able to flex knee however requests legs to be elevated due to discomfort in quad. Patient was issued FWW while in day surgery on 04/08/2025. Dr. Garcia has been updated on patient's functional abilities and has seen patient. Anticipate patient to be discharged home. Home exercise program was reviewed with patient PLAN: Continue per plan of care until discharge to home TREATMENT CODE/TIME: First session [id number] Second session [id number], [id number] DISCHARGE RECOMMENDATION: Home with HEP and use of FWW. Follow-up with Ortho MD regarding further need for skilled PT services
--- NOTE | 2025-04-09 12:17 | PDOC.CMDIS ---
Date of service: 04/09/25 Time of Service: 12:17 LACE Index Scoring Tool Questions: Length of Stay (in days): 1 Was the patient admitted via the E.D.?: No E.D. Visits: 0 Answers: Total Score: 1 Risk of Readmission: Low Risk Care Management Discharge Plan Reason for Hospitalization: left total hip replacement Discharge Plan: Hodan is discharged today with no home care services. He will f/u with the orthopedic surgeon in 2 weeks, and with his PCP and continue per his plan of care. Hodan will transport home in a private vehicle with his friend. Patient/Family Education Needs: Review of discharge instructions, activity and limitations. Discuss Ask me 3.
== END 2025-04-09 12:44 | disposition home or self-care (01) ==
LOC: SUR 07:12 → MS 22:52
PROVIDERS: Admitting Provider Student in an Organized Health Care Education/Training Program; PCP Family Medicine; Responsible Provider Student in an Organized Health Care Education/Training Program; Visit Provider Student in an Organized Health Care Education/Training Program
PROC: (CPT 27130; principal; 2025-04-08 07:30)
DX: M16.12 Unilateral primary osteoarthritis, left hip (principal); M54.16 Radiculopathy, lumbar region; E78.5 Hyperlipidemia, unspecified
CPT/HCPCS: 27130; 20985; 97110; 97116; 97162; 97530; 73501; 73502; C1776; G0378; J0690; J1100; J1171; J1790; J2371; J2401; J2405; J2704; J3010; J3475; J8540

== ENCOUNTER 2025-04-23 16:00 | Outpatient (CLI) | payer BC, SELFPAY ==
--- NOTE | 2025-04-23 13:15 | DI.RAD_ITS ---
Exam(s) XR HIP LT COMPLETE AP PELVIS EXAM: XR HIP LT COMPLETE AP PELVIS CLINICAL HISTORY: 1ST POST OP S/P L TIFFANI. TECHNIQUE: 2D digital imaging was performed. Two images were obtained. AP pelvis and lateral hip views were obtained. COMPARISON: CR XR HIP LT AP LAT ONLY from 04/08/2025 FINDINGS: BONES: There are stable post operative changes of a left total hip arthroplasty present. No fracture or dislocation. JOINTS: The orthopedic hardware is in good position. No evidence of hardware loosening. There are marked degenerative changes seen in the right hip characterized by joint space narrowing and osteophytes. SOFT TISSUE: Normal. IMPRESSION: 1. Stable left total hip arthroplasty. 2. Marked osteoarthritis of the right hip. DATA REPOSITORY: RADIATION DOSE DELIVERED:
== END 2025-04-23 16:01 | disposition home or self-care (01) ==
LOC: DIORS 16:01
PROVIDERS: PCP Family Medicine; Visit Provider Student in an Organized Health Care Education/Training Program
DX: Z96.642 Presence of left artificial hip joint (principal); M16.11 Unilateral primary osteoarthritis, right hip
CPT/HCPCS: 73502